=== PATIENT | female | born 1990 | race Caucasian/White ===

== ENCOUNTER 2021-09-04 06:17 | Inpatient (IN) | payer MEDICAID ==
[~2021-09-04] VITALS: Ht 165.1 cm; Wt 92.7 kg
[2021-09-04] VITALS (27 sets, daily range): BP systolic 94–125; BP diastolic 58–99; PULSE 77–108; TEMP 97.6–98.5
[~2021-09-04 06:17] MED LIST: MOTRIN 600600 MG/TAB PO; PRENATAL1 TA1 PO
--- NOTE | 2021-09-04 06:30 | NUR ---
Presents to labor and delivery for induction of labor. Assessment done, questions offered and answered.
--- NOTE | 2021-09-04 07:15 | NUR ---
Pitocin iv started at 2 noelle units as ordered.
[2021-09-04 08:13] LABS: BASO % 0.3 % (0.0-2.0); EOS # 0.2 K/mm3 (0.0-0.7); EOS % 1.7 % (0-4.0); GRAN # 6.7 K/mm3 (1.4-6.5); GRAN % 64.3 % (42.2-75.2); HEMATOCRIT 34.9 % (37.0-47.0); HEMOGLOBIN 11.5 g/dl (12.5-16.0); LYMPH # 2.6 K/mm3 (1.2-3.4); LYMPH % 24.9 % (20.0-51.0); MEAN CELL VOLUME 90 fl (80.0-100.0); MEAN CORPUSCULAR HEMOGLOBIN 30 pg (27.0-31.0); MEAN CORPUSCULAR HGB CONC 33 g/dl (33.0-37.0); MEAN PLATELET VOLUME 9.4 fl (7.4-10.4); MONO # 0.8 K/mm3 (0.1-0.6); MONO % 7.8 % (1.7-9.3); PLATELET COUNT 313 K/mm3 (130-400); RED BLOOD COUNT 3.88 M/mm3 (4.10-5.30); REDCELL DISTRIBUTION WIDTH-CV 13.5 % (11.5-14.5)
--- NOTE | 2021-09-04 09:00 | NUR ---
Ambulates to the bathroom and back. Sits on birthing ball. Breathes through contractions. Pitocin decreased to six noelle units because of contractions close together.
--- NOTE | 2021-09-04 10:30 | NUR ---
Continues to breathe through contractions. States wants to continue without epidural.
--- NOTE | 2021-09-04 11:45 | NUR ---
Sits up in bed for epidural. 1151 Straight shot given by anesthesia Maggie. 1153 Test dose given by anesthesia.
--- NOTE | 2021-09-04 12:38 | NUR ---
Dr. Solorio called and let her know that patient a nine. States will be over.
--- NOTE | 2021-09-04 12:45 | NUR ---
Dr. Solorio here, prepps for delivery. Pushes with contractions. 1251 Spontaneous delivery of baby boy by Dr. Solorio. 1159 Spontaneous delivery of placenta by Dr. Solorio. Pitoicin 333ccs an hour given as ordered and per protocol.
--- NOTE | 2021-09-04 13:15 | NUR ---
Rests in bed, alert. Holds baby lovingly. Denies any needs at this time.
--- NOTE | 2021-09-04 14:00 | NUR ---
Rests in bed, alert. Denies any discomfort or needs at this time.
--- NOTE | 2021-09-04 16:15 | NUR ---
Ambulates to the bathroom. Mary Lou-care given. Ice pack on. Ambulates to room 208, tolerates well.
--- NOTE | 2021-09-04 19:45 | NUR ---
Report recieved. Resting in bed at this time. POC reviewed and whiteboard updated.
[2021-09-05 04:55] VITALS: BP 98/59; PULSE 84; TEMP 98.1
[2021-09-05] MEDS ORDERED: IBU800 M1 PO (06:17)
[2021-09-05 08:55] VITALS: BP 120/96; PULSE 82; TEMP 97.1
--- NOTE | 2021-09-05 11:14 | NUR ---
Initial visit; Patient thanked Catalogue Clerk for offering congratulations for the of her son. Catalogue Clerk offered God's blessings and thanked patient for choosing [facility].
[2021-09-05 11:30] VITALS: BP 111/68; PULSE 81; TEMP 97.9
== END 2021-09-05 15:20 | disposition home or self-care (01) | DRG 807 ==
LOC: LDR 06:17 → OB 06:17 → LDR 09:34 → OB 16:30
PROVIDERS: ADMIT Student in an Organized Health Care Education/Training Program
PROC: 10E0XZZ Delivery of Products of Conception, External Approach (ICD-10-PCS; principal; 2021-09-04)
PROC: 0KQM0ZZ Repair Perineum Muscle, Open Approach (ICD-10-PCS; 2021-09-04)
PROC: 10907ZC Drainage of Amniotic Fluid, Therapeutic from Products of Conception, Via Natural or Artificial Opening (ICD-10-PCS; 2021-09-04)
PROC: 3E033VJ Introduction of Other Hormone into Peripheral Vein, Percutaneous Approach (ICD-10-PCS; 2021-09-04)
DX: O99.02 Anemia complicating childbirth (principal); Z37.0 Single live birth; D64.9 Anemia, unspecified; O99.344 Other mental disorders complicating childbirth; F41.8 Other specified anxiety disorders; F90.9 Attention-deficit hyperactivity disorder, unspecified type; O69.2XX0 Labor and delivery complicated by other cord entanglement, with compression, not applicable or unspecified; O70.1 Second degree perineal laceration during delivery; Z3A.39 39 weeks gestation of pregnancy
CPT/HCPCS: J2590; J7120